=== PATIENT | male | born 1980 | race Caucasian/White ===

== ENCOUNTER 2025-11-21 16:36 | Emergency (ER) | payer BC, SELFPAY ==
--- OUTSIDE RECORDS SUMMARY | 2025-11-21 16:39 | XMS_ITS | Clinical Summary ---
Author Organization [facility] Address [address] [place] [address] Phone Care Team Providers Care [employer] Name Role Phone Jose Kilgore MD Primary Care Provider [phone] Allergies No known active allergies Medications finasteride (PROSCAR) 5 MG Tablet Take 5 mg by mouth daily. Active valACYclovir (VALTREX) 500 MG Tablet Take 500 mg by mouth daily. Active omeprazole (PRILOSEC) 20 MG CAPSULE DELAYED RELEASE Take 20 mg by mouth daily. Active promethazine-de xtromethorphan (PROMETHAZINE-D M) 6.25-15 MG/5ML SyrupIndication s:Acute cough Take 5 mL by mouth every 4 hours as needed for Cough. 240 mL 2 Active methylPREDNISol one (Medrol) 4 MG Tablet Therapy PackIndications :Bronchitis Use as per instructions on package. 21 Tablet 2 Active Additional Information Patient not taking.Reported on 10/16/2023 Active Problems No known active problems Immunizations Immunization Administration Dates Next Due Influenza Vaccine greater than 3 yrs 09/09/2019 Social History Tobacco Use Types Packs/Day Years Used Date Smoking Tobacco: Never Smokeless Tobacco: Never Tobacco Cessation:Counseling Given: Not Answered Alcohol Use Standard Drinks/Week Comments Yes 0 (1 standard drink = 0.6 oz pur e alcohol) occasional Sexually Active Control Partners Comments Not Currently Sex and Gender Information Value Date Recorded Sex Assigned at Not on file Legal Sex Male 7:27 PM CDT Gender Identity Not on file Sexual Orientation Not on file Last Filed Vital Signs Vital Sign Reading Time Taken Comments Blood Pressure 122/84 10/16/2023 11:20 AM [employer] Pulse 96 10/16/2023 11:20 AM [employer] Temperature 36.5 C (97.7 F) 10/16/2023 11:20 AM [employer] Respiratory Rate 18 10/16/2023 11:20 AM [employer] Oxygen Saturation 98% 10/16/2023 11:20 AM [employer] Inhaled Oxygen Concentration - - Weight 102.1 kg (225 lb) 03/06/2021 8:07 AM CDT Height 195.6 cm (6' 5) 01/20/2019 2:34 PM [employer] Body Mass Index 26.68 01/20/2019 2:34 PM [employer] Plan of Treatment Health Maintenance Due Date Last Done Comments Hepatitis C Virus (HCV) Screening 1980 Hepatitis B Immunization (1 of 3 - 19+ 3-dose series) 1997 Cologuard 2023 Colonoscopy 2023 Colorectal Cancer Screening 2023 Immunochemical Fecal Occult Blood 2023 Influenza Immunization (#1) 2025 11/0 07/2023, 09/18/2022, 12/01/2021, Additional history exists SARS-COV-2 Immunization ( - 2024- season) 2025 01/07/2021, 12/10/2020 Respiratory Syncytial Virus (RSV) Immunization (Adult) (1 - 1-dose 75+ series) 2053 DTaP/Tdap/Td Immunization Discontinued 03/14/2023, TdaP Immunization Completed 03/14/2023, 08/15/2011 Human Papillomavirus (HPV) Immunization (No Doses Required) Completed Meningococcal Immunization (ACWY) Aged Out No longer eligible based on patient's age to complete this topic Pneumococcal Immunization Combined Aged Out No longer eligible based on patient's age to complete this topic Rotavirus Immunization Aged Out No lo nger eligible based on patient's age to complete this topic Insurance [facility] Care Teams [employer] Relationship Specialty Start Date End Date Jose Kilgore MD [employer] [id number] PCP - General Internal Medicine 10/30/15
--- OUTSIDE RECORDS SUMMARY | 2025-11-21 16:40 | XMS_ITS | Clinical Summary ---
Author Organization [facility] Address [address] [place] [address] Care Team Providers Care Blood Bank Laboratory Technologist Name Role Phone Jose Kilgore MD Primary Care Provider [phone] Allergies No known active allergies Medications omeprazole OTC (PriLOSEC OTC) 20 mg EC tablet Take 1 tablet (20 mg total) by mouth daily Active finasteride (PROSCAR) 5 mg tablet TAKE 1 TABLET DAILY 90 tablet 1 5 Active valACYclovir (VALTREX) 1 gram tabletIndications :Herpes simplex infection of penis TAKE 1 TABLET(1000 MG) BY MOUTH DAILY 90 tablet 1 5 Active solriamfetoL (Sunosi) 150 mg tablet Take 1 tablet (150 mg total) by mouth daily 30 tablet 5 5 Active linaCLOtide (LINZESS) 72 mcg capsuleIndication s:Irritable bowel syndrome with both constipation and diarrhea Take 1 capsule (72mcg total) by mouth once daily 90 capsule 2 5 Active linaCLOtide (LINZESS) 72 mcg capsule Take 1 capsule (72mcg total) by mouth once daily 90 capsule 2 2 11/15/20 25 Discontinu ed(Reorder ) modafiniL (PROVIGIL) 200 mg tablet Take 1 tablet (200 mg total) by mouth 2 (two) times a day 60 tablet 5 4 11/15/20 25 Discontinu ed(Patient Reported) solriamfetoL (Sunosi) 150 mg tablet TAKE 1 TABLET(150 MG) BY MOUTH DAILY 30 tablet 5 5 11/04/20 25 Discontinu ed(Reorder ) Active Problems Problem Noted Date Diagnosed Date Preventative health care 11/12/2025 Assessment & Plan (11/12/2025 1:57 PM SIDE BOSS): Presents today for annual wellness exam Medication reconciliation completed and med list updated appropriately Memory loss 11/16/2021 Laryngopharyngeal reflux (LPR) 10/20/2019 Assessment & Plan (10/20/2019 3:44 PM SIDE BOSS): Continue omeprazole in the morning 20 mg Start Pepcid 40 mg at bedtime every day 64 ounces of caffeine free and soda free fluid daily Avoid acidic foods and fluids Irritable bowel syndrome wit h both constipation and diarrhea 03/16/2019 Overview (03/16/2019): Added automatically from request for surgery [id number] Assessment & Plan (11/15/2025 11:06 AM SIDE BOSS): Chronic, stable Family hx of IBS Meds: lizness, continue Continue OTC Metamucil Goal: medication compliance - stable Assessment & Plan (12/28/2019 3:49 PM SIDE BOSS): The elavil 25 has helped but still has what I think is L chest wll or chostochondrial pain related to motion and exewrtion. Miralax daily maintainds daily bm. Now has difficulty maintaining erection. Will increase the elavil to 50 and add cialis prn. Return 4 weeks Assessment & Plan (11/27/2019 2:19 PM SIDE BOSS): Has been following dit and daily miralax but in wpite of daily bms has LUQ cramping pain. Also notes pop at xiphoid or insertion into sternum. He desiures trial of meds. PE positive only for very prominent xiphoid. 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 will do valtrex 500 mg po qday , they are having marital issues he did have sex with somebody else but does not has any symptoms,he has not told his yet does not plan to have sex with her and plans to tell him , we did discuss it may be a reportable illness will check with the health dept , we stressed its imperative to tell and inform his about it however cant really tell who he got it from and when the tests really caqnt differentiate one from the other OSMANY (obstructive sleep apnea) 06/14/2017 Assessment & Plan (04/13/2024 5:41 PM CDT): On cpap F/u dr nair ( referral done ) Compliance discussed ) Hypersomnia 06/14/2017 Assessment & Plan (11/15/2025 11:06 AM SIDE BOSS): Chronic, stable Follows w/ Dr. Nair Meds: solriamfetol, continue Goal: per sleep medicine Mixed hyperlipidemia 04/10/2014 Overview (02/27/2017): Hyperlipidemia LDL goal < 130 Assessment & Plan (11/15/2025 11:05 AM SIDE BOSS): Chronic, unstable Labs reviewed: lipid panel 10/2025 Current therapy (ies)/home meds: none States he has been using Metamucil Today's Plan: Meds: none today Labs: repeat lipid panel in 6 months Recs: heart healthy diet, regular exercise, managing stress Goal: LDL less than 100 Assessment & Plan (04/13/2024 5:40 PM CDT): Pooled cohort score is 2.7 percent LDL is under 190 now Continue dietary modifications Resolved Problems Problem Noted Date Diagnosed Date Resolved Date Pre-employment health screening examination 10/29/2024 11/12/2025 Assessment & Plan (05/10/2025 11:01 AM CDT): Immunizations were reviewed today Eye exam and dental uptodate Fall prevention and precautions were reviewed Continue current medication regimen Monitoring and labs reviewed No cogntive decline . Skin assessement with no suspicious lesions. PATIENT WILL CONTINUE TO FOLLOW UP EVERY 4-6 MONTHS OR CLINICALLY INDICATED. MEDICATION ADHERENCE , PREVENTATIVE SCREENINGS. AND C HRONIC CONDITION MANAGEMENT WILL BE MONITORED REGULARLY . PATIENT ADVISED TO CONTACT OFFICE WITH ANY NEW OR WORSENING SYMPTOMS. Assessment & Plan (10/29/2024 5:48 AM SIDE BOSS): Immunizations were reviewed Eye exam and dental uptodate Osmany on cpap machine Intermiediate risk for CAD DUE TO OSMANY/ AGE ABOVE 45/ ELEVATED LDL ABOVE 190 DISCUSSED STATINS / DISCUSSED CORONARY CALCIUM SCORING IBS WITH CONSTIPATION ON LINZESS WITRH A NEG COLONSCOPY ED ORGANIC IN NATURE ON SIDENAFIL PRN AT A DOSAGE OF 50 MG PRN Viral URI with cough 10/30/2023 025 Assessment & Plan (10/30/2023 11:58 AM SIDE BOSS): Symptoms came back yesterday after COVID + diagnosis 2 weeks ago. Tested negative for COVID and FLU in office today. No acute findings on exam, lungs clear. Likely viral, Use OTC meds as needed for cough. Discussed antihistamine use (zyrtec/cherri) to help dry up nasal drip. Mucinex to thin mucous for chest congestion. Tylenol/Ibuprofen as needed for pain. Increase fluids (water) Cool mist humidifier at night Use sinus rinses to help flush bacteria and help with congestion. Encouraged honey, marshmallows, gelatin, or chloraseptic to help coat throat. Call with any worsening or persistent symptoms. Folliculitis 08/30/2022 11/12/2025 Assessment & Plan (08/30/2022 8:56 AM CDT): Presents with ingrown hair to R anterior paulino for 3-4 weeks. He has tried to pop it multiple times and only gets blood out of it, no purulent drainage. Localized papule to R anterior paulino with minimal surrounding redness, upon palpation clear drainage is noted from around central scab. No warmth or fluctuance. Likely localized folliculitis, Rxd clindagel as directed. Keep clean and dry, cleanse at least daily with mild soap and water. Call with any changes or concerns or if symptoms not improved within 2 weeks. Keep follows as scheduled. Hematoma (nontraumatic) of m daisy genital organs 02/28/2021 11/12/2025 Epigastric pain 10/26/2019 11/12/2025 Assessment & Plan (01/25/2020 3:45 PM SIDE BOSS): Elavil no help Still has epi butning related to constipation and worsened by torso motion. Still LLQ pain with constipation and stress. Thus far CT,colonoscopy and blood work and PE normal. Broached possibility of anxiwty and stress and he is receptive. Will try Linzess and also EGD and then recap here. Assessment & Plan (10/26/2019 2:13 PM SIDE BOSS): I reviewed notes,labs,images and procedures. 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 Colonoscopy normal. CT maybe 2 tiny gallstones and probably NOT fatty liver. LFTs normal the last several years. PE neg. I think ibs post GE and will try hi fiber diet and recap in 4 weeks. May consider pharma is diet unsuccessful. Encounters Date Type Department Care Team Description 11/15/2025 10:30 AM SIDE BOSS Office Visit [facility] [address] [place] [phone] Dsetin Avila NP Preventative health care (Primary Dx); Hypersomnia; Irritable bowel syndrome with both constipation and diarrhea; Mixed hyperlipidemia 11/10/2025 10:10 AM SIDE BOSS Lab [facility] [address] [place] [address] Routine physical examination 11/04/2025 3:15 PM SIDE BOSS Office Visit [facility] [address] [facility] [address] [place] [phone] Elizabeth Nair MD OSMANY (obstructive sleep apnea) (Primary Dx); Hypersomnia 11/03/2025 [facility] [address] [place] [phone] Jose Kilgore MD from Last 3 Months Immunizations Immunization Administration Dates Next Due Influenza, Quadrivalent, Spl it, Preservative Free, Intramuscular 10/03/2023,09/18/2022,12/01/2021 Influenza, Split 08/15/2011 Influenza, Trivalent, IM (MDV) 09/09/2019 Influenza, Trivalent, Preser vative Free, Intramuscular 08/27/2025,09/23/2024 Moderna SARS-CoV-2 Monovalen t Vaccination (12+ YRS) 01/07/2021,12/10/2020 Tdap 03/14/2023,08/15/2011 Surgical History Surgery Date Site/Laterality Comments OTHER SURGICAL HISTORY right knee ACL, meniscus removed, then screw removed ([id number]) COLONOSCOPY 04/06/2019 1st Medical History Medical History Date Comments Chronic constipation since Oct.2 018 w/bloating Family History Medical History Relation Name Comments Leukemia Cousin Cancer -leukemi a; Other Father Alive and well; Irritable bowel syndrome Mother Irr itable bowel disease; Other Mother kidney stone; Relation Name Status Comments Cousin Father Alive Mother Social History Tobacco Use Types Packs/Day Years Used Date Smoking Tobacco: Never Smokeless Tobacco: Never Tobacco Cessation:Counseling Given: Not Answered Alcohol Use Standard Drinks/Week Comments Yes 1 (1 standard drink = 0.6 oz pur e alcohol) occasional AUDIT-C Answer Date Recorded Q1: How often do you have a drink containing alc ohol? Never 02/28/2021 Average Number of Drinks Not on file 021 Frequency of Binge Drinking Not on file 0404/2021 PHQ-2 Answer Date Recorded PHQ-2 Total Score (If total score is 3 or more points, staff should administer the PHQ-9) 0 11/15/2025 PHQ-9 Answer Date Recorded PHQ-9 Total Score 0 11/15/2025 Sex and Gender Information Value Date Recorded Sex Assigned at Not on file Legal Sex Male 10:32 AM SIDE BOSS Gender Identity Not on file Sexual Orientation Not on file Last Filed Vital Signs Vital Sign Reading Time Taken Comments Blood Pressure 126/64 11/15/2025 10:26 AM SIDE BOSS Pulse 87 11/15/2025 10:26 AM SIDE BOSS Temperature 36.2 C (97.1 F) 11/15/2025 10:26 AM SIDE BOSS Respiratory Rate 16 11/15/2025 10:2 6 AM SIDE BOSS Oxygen Saturation 98% 11/15/2025 10: 26 AM SIDE BOSS Inhaled Oxygen Concentration - - Weight 108.3 kg (238 lb 12.8 oz) 2024 10:26 AM SIDE BOSS Height 195.6 cm (6' 5) 11/15/2025 10:2 6 AM SIDE BOSS Body Mass Index 28.32 11/15/2025 10:26 AM SIDE BOSS Plan of Treatment Health Maintenance Due Date Last Done Comments Hepatitis C Screening 1978 Hepatitis B Screening 1996 Covid-19 Vaccine ( season) 2025 01/07/2021, 12/10/2020 Depression Screening 11/15/2026 11/15/2025, 11/15/2025, 10/28/2024, Additional history exists Regular Well Visit/Exam 18-64 11/15/2026 11/15/2025, 10/28/2024, 03/14/2023, Additional history exists Colon Cancer Screening-Colonoscopy 04/06/2029 04/06/2019 DTaP/Tdap/Td Vaccine (3 - Td or Tdap) 03/14/2033 03/14/2023, 08/15/2011 Influenza Vaccine Completed 08/27/2025, , 10/03/2023, Additional history exists Pneumococcal vaccine <65 Aged Out No longer eligible based on patient's age to complete this topic Procedures Procedure Name Priority Date/Time Associated Diagnosis Comments EGFR Routine 11/10/2025 10:18 AM SIDE BOSS Routine physical examination DIFFERENTIAL AUTO Routine 11/10/2025 10: 18 AM SIDE BOSS Routine physical examination PSA SCREEN Routine 11/10/2025 10:18 AM SIDE BOSS Routine physical examination LIPID PANEL Routine 11/10/2025 10:18 AM SIDE BOSS Routine physical examination CBC WITH AUTO DIFFERENTIAL Routine 11/10/2025 10:18 AM SIDE BOSS Routine physical examination COMPREHENSIVE METABOLIC PANEL Routine 11/10/2025 10:18 AM SIDE BOSS Routine physical examination COLONOSCOPY 04/06/2019 10:59 AM CDT from Last 3 Months or Most Recently Relevant to Health Maintenance Results * eGFR (11/10/2025 10:18 AM SIDE BOSS) eGFR 90 >=60 mL/min/1. 73 m2 Comment: Interpretive Data Reference Interval Normal >/= 90 mL/min/1.73m2 Mildly decreased* 60 - 89 mL/min/1.73m2 Mildly to moderately decreased 45 - 59 mL/min/1.73m2 Moderately to severely decreased 30 - 44 mL/min/1.73m2 Severely decreased 15 - 29 mL/min/1.73m2 Kidney Failure < 15 mL/min/1.73m2 *Relative to young adult level Estimated glomerular filtration rate is determined by the 2020 CKD-EPI equation recommended by the National Kidney Foundation (A Unifying Approach to GFR Estimation: Recommendations of the NKF-ASK Task Force on Reassessing the Inclusion of Race in Diagnosing Kidney Disease, JASN 2020). The CKD-EPI equation should not be used for patients with unstable renal function and has not been validated in children and those over 70. Current interpretive data was last reviewed 2021. Testing performed by: [facility], [address] [place] [address]., [address] Blood 11/10/2025 10:1 8 AM SIDE BOSS 11/10/2025 10:31 AM SIDE BOSS Jose Kilgore MD LAB BLOOD ORDERABLES Final Result RADHA HENAO [address] [facility] [place] [address] * Differential, auto (11/10/2025 10:18 AM SIDE BOSS) Neutrophil abs 3.78 1.50 - 6.50 K/cumm Comment:Testing performed by : [address] [address] Imm gran abs 0.01 0.00 - 0.10 K/cumm RADHA HENAO Comment:Testing performed by : [address] [address] Lymphocyte abs 1.74 0.80 - 3.30 K/cumm RADHA Comment:Testing performed by : [address], [place]., [address] Monocyte abs 0.47 0.20 - 0.80 K/cumm CERRUTH ANN Comment:Testing performed by : [address], [place]., [address] Eosinophil abs 0.11 0.00 - 0.50 K/cumm [facility] Comment:Testing performed by : [address], [place]., [address] Basophil abs 0.04 0.00 - 0.10 K/cumm [facility] Comment:Testing performed by : [address] [address] Neutrophil pct 61.4 % [facility] Comment: Interpretive Data Percent cell count reference ranges are not reported, since discordance with absolute values may lead to misinterpretation of CBC data. Current Interpretive Data was last revised on 2018. Testing performed by: [address] [address] Imm gran pct 0.2 % [facility] Comment: Interpretive Data Percent cell count reference ranges are not reported, since discordance with absolute values may lead to misinterpretation of CBC data. Current Interpretive Data was last revised on 2018. Testing performed by: [address] [address] Lymphocyte pct 28.3 % [facility] Comment: Interpretive Data Percent cell count reference ranges are not reported, since discordance with absolute values may lead to misinterpretation of CBC data. Current Interpretive Data was last revised on 2018. Testing performed by: [address] [address] Monocyte pct 7.6 % [facility] ANN Comment: Interpretive Data Percent cell count reference ranges are not reported, since discordance with absolute values may lead to misinterpretation of CBC data. Current Interpretive Data was last revised on 2018. Testing performed by: [address] [address] Eosinophil pct 1.8 % [facility]ER [facility] Comment: Interpretive Data Percent cell count reference ranges are not reported, since discordance with absolute values may lead to misinterpretation of CBC data. Current Interpretive Data was last revised on 2018. Testing performed by: [address] [address] Basophil pct 0.7 % [facility] Comment: Interpretive Data Percent cell count reference ranges are not reported, since discordance with absolute values may lead to misinterpretation of CBC data. Current Interpretive Data was last revised on 2018. Testing performed by: [address] [address] Blood 11/10/2025 10:1 8 AM SIDE BOSS 11/10/2025 10:33 AM SIDE BOSS Jose Kilgore MD LAB BLOOD ORDERABLES Final Result Performing Organization Address [facility] de Phone Number [address] [place] [address] * PSA screen (11/10/2025 10:18 AM SIDE BOSS) PSA-Total 0.33 ng/mL Comment: Interpretive Data AGE SEX REFERENCE INTERVAL 0 minutes-150 years Female None 0 minutes-49 years Male None 50-59 years Male 0-3.90 60-69 years Male 0-5.40 70-79 years Male 0-6.20 80-150 years Male 0-6.20 The Payton PSA Total assay procedure was used. Results from different manufacturers or methods may not be comparable. Serial testing should be performed using the same method. Current interpretive data last revised 22. Testing performed by: [address] [address] Blood 11/10/2025 10:1 8 AM SIDE BOSS 11/10/2025 10:31 AM SIDE BOSS Jose Kilgore MD LAB BLOOD ORDERABLES Final Result Performing Organization Address [facility] de Phone Number [address] [place] [address] * CBC with auto differential (11/10/2025 10:18 AM SIDE BOSS) [facility] WBC 6.15 3.80 - 9.90 K/cumm Comment:Testing performed by : [address] [address] Hgb 16.5 13.0 - 17.5 g/dL RADHA Comment:Testing performed by : [address], [address] Hct 49.1 38.9 - 50.3 % RADHA Comment:Testing performed by : [address], [address] Plt 191 150 - 400 K/cumm RADHA Comment:Testing performed by : [address] [address] MPV 10.9 9.1 - 12.3 fL RADHA Comment:Testing performed by : [address], [address] RBC 5.55 4.30 - 5.80 M/cumm RADHA Comment:Testing performed by : [address], [address] MCV 88.5 81.3 - 96.4 fL RADHA Comment:Testing performed by : [address] [address] MCH 29.7 27.1 - 33.3 pg RADHA Comment:Testing performed by : [address], [address] MCHC 33.6 32.3 - 35.7 g/dL RADHA Comment:Testing performed by : [address] [address] RDW CV 12.0 11.1 - 14.9 % RADHA Comment:Testing performed by : [address] [address] RDW SD 38.7 35.7 - 48.1 fL RADHA Comment:Testing performed by : [address], [address] NRBC abs 0.00 0.00 - 0.01 K/cumm RADHA HENAO Comment:Testing performed by : [facility], [address] [place] [address]., [address] Blood 11/10/2025 10:1 8 AM SIDE BOSS 11/10/2025 10:33 AM SIDE BOSS us Jose Kilgore MD LAB BLOOD ORDERABLES Final Result RADHA [address] [facility] [place] [address] * (ABNORMAL) Lipid panel (11/10/2025 10:18 AM SIDE BOSS) Cholesterol 269(H) 30 - 199 mg/dL Comment: Interpretive Data Ages < or = 19 years Acceptable: <170 mg/dL Borderline high: 170-199 mg/dL High: >or= 200 mg/dL Ages > or = 20 years Desirable: <200 mg/dL Borderline high: 200-239 mg/dL High: >or= 240 mg/dL Literature References: 1. Expert Panel on Integrated Guidelines for Cardiovascular Health and Risk Reduction in Children and Adolescents. Pediatrics 2011;128:S213 2. NCEP Expert Panel. Circulation 2004;110:227 Current Interpretive Data was last revised on 2018. Testing performed by: [facility], [address] [place] [address]., [address] Triglycerides 154(H) <=149 mg/dL RADHA HENAO Comment: Interpretive Data Ages < or = 9 years Acceptable: <75 mg/dL Borderline high: 75-99 mg/dL High: >or= 100 mg/dL Ages 10 to 20 years Acceptable: <90 mg/dL Borderline high: 90-129 mg/dL High: >or= 130 mg/dL Ages > or = 20 years Desirable: <150 mg/dL Borderline high: 150-199 mg/dL High: 200-499 mg/dL Very high: >or= 499 mg/dL Literature References: 1. Expert Panel on Integrated Guidelines for Cardiovascular Health and Risk Reduction in Children and Adolescents. Pediatrics 2011;128:S213 2. NCEP Expert Panel. Circulation 2004;110:227 Current Interpretive Data was last revised on 2018. Testing performed by: [facility], [address] [place] [address]., [address] HDL 55 >=40 mg/dL RADHA Comment: Interpretive Data Ages < or = 19 years Acceptable: >45 mg/dL Borderline low: 40-45 mg/dL Low: <40 mg/dL Ages > or = 20 years Desirable: >or= 60 mg/dL Low: <40 mg/dL Literature References: 1. Expert Panel on Integrated Guidelines for Cardiovascular Health and Risk Reduction in Children and Adolescents. Pediatrics 2011;128:S213 2. NCEP Expert Panel. Circulation 2004;110:227 Current Interpretive Data was last revised on 2018. Testing performed by: [address] [address] LDL, calculated 186(H) <=129 mg/dL RADHA Comment: Interpretive Data Ages < or = 19 years Acceptable: <110 mg/dL Borderline high: 110-129 mg/dL High: >or= 130 mg/dL Ages > or = 20 years Optimal: <100 mg/dL Near optimal: 100-129 mg/dL Borderline high: 130-159 mg/dL High: >160 mg/dL Calculated using the Kayden LDL-C estimating equation. This equation was implemented on 2024. Prior to this date LDL-C was estimated using the Friedewald equation. Literature References: 1. Expert Panel on Integrated Guidelines for Cardiovascular Health and Risk Reduction in Children and Adolescents. Pediatrics 2011;128:S213 2. NCEP Expert Panel. Circulation 2004;110:227 3. Kayden Mills et al. MITSY Cardiol. 2020 March 25;5(5):540-548. doi: 10.1001/jamacardio.2020.0013 Current Interpretive Data was last revised on 2024. Testing performed by: [facility], [address] [place] [address]., [address] Non-HDL Cholesterol 214 mg/dL RADHA Comment: Interpretive Data Ages < or = 19 years Acceptable: <120 mg/dL Borderline high: 120-144 mg/dL High: >145 mg/dL Ages > or = 20 years When triglycerides are >200 mg/dL, Non-HDL cholesterol is a secondary target of therapy with treatment goals that are 30 mg/dL greater than the LDL cholesterol target. Literature References: 1. Expert Panel on Integrated Guidelines for Cardiovascular Health and Risk Reduction in Children and Adolescents. Pediatrics 2011;128:S213 2. NCEP Expert Panel. Circulation 2004;110:227 Current Interpretive Data was last revised on 2018. Testing performed by: [address] [address] Chol/HDL ratio 5 RADHA Comment:Testing performed by : [address] [address] Blood 11/10/2025 10:1 8 AM SIDE BOSS 11/10/2025 10:31 AM SIDE BOSS us Jose Kilgore MD LAB BLOOD ORDERABLES Final Result RAD[facility] [place] [address] * (ABNORMAL) Comprehensive metabolic panel (11/10/2025 10:18 AM SIDE BOSS) Sodium 141 135 - 145 mmol/L Comment:Testing performed by : [address] [address] Potassium, pl 4.9 3.3 - 4.9 mmol/L RADHA Comment: Hemolyzed; Potassium value may be falsely elevated by as much as 1.0 mmol/L. Suggest redraw and reanalysis. Testing performed by: [address] [address] Chloride 103 97 - 110 mmol/L RADHA Comment:Testing performed by : [address] [address] CO2 26 22 - 32 mmol/L RADHA Comment:Testing performed by : [address] [address] Anion gap 12 2 - 15 mmol/L RADHA Comment:Testing performed by : [address] [address] BUN 19 6 - 25 mg/dL RADHA Comment:Testing performed by : [address] [address] Creatinine 1.03 0.80 - 1.30 mg/dL [facility] Comment:Testing performed by : [address] [address] Glucose 104 70 - 199 mg/dL [facility] Comment: Interpretive Data Fasting glucose >/= 126 mg/dl is diagnostic for diabetes. Fasting is defined as no caloric intake for at least 8 hours. Fasting glucose between 100 mg/dl to 125 mg/dl is diagnostic of prediabetes. In a patient with classic symptoms of hyperglycemia or hyperglycemic crisis, a random glucose >/= 200 mg/dl is diagnostic for diabetes. In the absence of unequivocal hyperglycemia, results should be confirmed by repeat testing. The classification and Diagnosis of Diabetes Diabetes Care 202; 46: S19-S40. Current interpretive data was last revised 2022. Testing performed by: [address] [address] Calcium 10.9(H) 8.5 - 10.3 mg/dL [facility] Comment:Testing performed by : [address] [address] Bilirubin, total 0.7 0.1 - 1.2 mg/dL [facility] Comment:Testing performed by : [address] [address] Protein, pl 7.8 6.5 - 8.5 g/dL [facility] Comment:Testing performed by : [address] [address] Albumin 4.7 3.5 - 5.0 g/dL [facility] Comment:Testing performed by : [address] [address] Alk phos 93 40 - 130 Units/L [facility] Comment:Testing performed by : [address] [address] ALT 47 7 - 55 Units/L [facility] Comment:Testing performed by : [address] [address] AST 33 10 - 50 Units/L [facility] Comment: Hemolyzed; result may be falsely elevated Testing performed by: [address] [address] Blood 11/10/2025 10:1 8 AM SIDE BOSS 11/10/2025 10:31 AM SIDE BOSS Jose Kilgore MD LAB BLOOD ORDERABLES Final Result RADHA [address] [facility] Department of Laboratories [place], [place] [id number] * COLONOSCOPY (04/06/2019 10:59 AM CDT) Anatomical Region Laterality Modality Other Narrative Procedure Note Terry Wbeber MD - 04/06/2019 10:59 AM CDT [facility] Patient Name: [facility] Procedure Date: 04/06/2019 10:59 AM Date of : 1980 Admit Type: Outpatient Age: 39 Gender: Male Attending MD: Terry Webber M.D. Room: [facility] END[facility]COPY ROOM 2 Note Status: Finalized Procedure: Colonoscopy Indications: This is the patient's first colonoscopy, Change in bowel habits Referring MD: Jose Kilgore M.D. Providers: Terry Webber M.D. Impression: - The entire examined colon is normal. - The [Location] is normal. - No specimens collected. Recommendation: - Discharge patient to home. - Resume previous diet. - Continue present medications. - Repeat colonoscopy in 10 years for screeningpurposes. - Return to primary care physician as previously scheduled. Medicines: Propofol per Anesthesia Complications: No immediate complications. Estimated Blood Loss: Estimated blood loss: none. Procedure: The benefits, risks and alternatives of theprocedure and sedation were discussed and informed consent was obtained. All questions were answered. Please referto the signed informed consent document in the medical record. The scope was passed under direct vision.The Colonoscope [id number] was introducedthrough the anus and advanced to the the cecum, identifiedby appendiceal orifice and ileocecal valve. The colonoscopy was performed without difficulty. The patient tolerated the procedure well. The quality of the bowel preparation was good. Findings: The perianal and digital rectal examinations were normal. The colon (entire examined portion) appeared normal. The [Site] appeared normal. Electronically signed by Terry Webber M.D. Terry Webber M.D. 04/06/2019 11:26:12 AM Number of Addenda: 0 Note Initiated On: 04/06/2019 10:59 AM Procedure Code(s): --- Professional --- 37008, Colonoscopy, flexible; diagnostic, including collection of specimen(s) by brushing or washing, when performed (separateprocedure) Diagnosis Code(s): --- Professional --- R19.4, Change in bowel habit CPT copyright 2017 [employer]. All rights reserved. The codes documented in this report are preliminary and upon engineering programmer reviewmay be revised to meet current compliance requirements. Recognized by the [employer] for promoting quality in endoscopy Terry Webber MD ENDOSCOPY PROCEDURES Final Re sult from Last 3 Months or Most Recently Relevant to Health Maintenance Insurance [facility] [place] [address] [place] [address] [facility] Advance Directives For more information, please contact: [phone] * Full Code (Latest Code Status on File) Date Activated Date Inactivated Comments 04/06/2019 9:29 AM 04/06/2019 4:01 PM * Full Code Date Activated Date Inactivated Comments 04/06/2019 9:28 AM 04/06/2019 9:29 AM Care Teams Blood Bank Laboratory Technologist Relationship Specialty Start Date End Date Jose Kilgore MD [address] [place] [address] PCP - General 02/22/17
[2025-11-21 16:49] VITALS: BP 119/94; PULSE 100; RESP 18; TEMP 36; O2SAT 99
[2025-11-21 17:03] LABS: EDCOVIDSCREEN Positive (Negative); EDINFLUASCREEN Negative (Negative); EDINFLUBSCREEN Negative (Negative)
--- NOTE | 2025-11-21 17:09 | ED.URI ---
HPI - URI/Sore Throat General Chief Complaint: Upper Respiratory Infection Stated Complaint: Upper Respiratory Infection History of Present Illness HPI Narrative: CHIEF COMPLAINT: Persistent COVID symptoms PATIENT SUMMARY: The patient presented with persistent COVID symptoms. HISTORY OF PRESENT ILLNESS: The patient reported feeling unwell since Saturday, initially experiencing drainage and a mild sore throat. By Saturday and , the patient felt run-down without strong symptoms. On Saturday, the patient's nose was running excessively, and the patient felt feverish with a low-grade fever. Despite feeling slightly better on Saturday and Saturday, the patient remained unable to completely recover. The patient was using Claritin, Mucinex, saline nasal spray, and an overnight nasal spray without significant relief. The patient also experienced chest congestion and a dry cough. The patient had been sweating and experienced a temperature spike after using albuterol, which was taken along with Sunosi, a medication for sleep apnea. The patient reported not having shortness of breath. The symptoms improved slightly over the weekend but persisted. REVIEW OF SYSTEMS: Constitutional: Positive for feeling run-down and feverish. Negative for significant improvement despite medication. Respiratory: Positive for chest congestion and a dry cough. Negative for shortness of breath. PAST MEDICAL HISTORY: Sleep apnea (treated with Sunosi) PAST SURGICAL HISTORY: Not available MEDICATIONS: Claritin 24-hour, Mucinex 12-hour, Saline nasal spray, Sunosi, Albuterol (previously prescribed) ALLERGIES: Not available FAMILY HISTORY: Not available SOCIAL HISTORY: - Contact with family limited due to COVID-19 - Concerned about infecting daughter who is home from college VITALS AND PHYSICAL EXAM: Not available Related Data Home Medications ?Medication ?Instructions ?Recorded ?Confirmed ?Last Taken ?Type solriamfetol 150 mg tablet (Sunosi) mg 11/21/25 Unknown History valacyclovir 1 gram tablet mg 11/21/25 Unknown History Allergies Allergy/AdvReac Type Severity Reaction Status Date / Time No Known Allergies Allergy Verified 11/21/25 16:48 Review of Systems Review of Systems: All systems reviewed & are unremarkable except as noted in HPI and below Eyes: Eyes: Reports as per HPI ENT: Reports as per HPI Cardiovascular: Cardiovascular: Reports as per HPI Respiratory: Respiratory: Reports as per HPI Genitourinary: Genitourinary: Reports as per HPI Musculoskeletal: Musculoskeletal: Reports as per HPI Integumentary/Breasts: Skin/Breast: Reports as per HPI Neurologic: Reports as per HPI Psychiatric: Psychiatric: Reports as per HPI Endocrine: Endocrine: Reports as per HPI Hematologic/Lymphatic: Hematologic/Lymphatic: Reports as per HPI Allergic/Immunologic: Allergic/Immunologic: Reports as per HPI Exam Const: General: cooperative, healthy appearing, comfortable, no acute distress and well developed Orientation/consciousness: patient oriented x3 HENMT: Head: normal to inspection Ears: TM's normal bilaterally Throat: posterior oropharynx normal Eyes: General: appearance normal, both eyes and all related structures Resp: Effort & Inspection: normal respiratory effort and able to speak in complete sentences Auscultation: clear to auscultation bilaterally Cardio: Rate: regular rate Rhythm: regular rhythm Heart sounds: S1 normal heart sound present and S2 normal heart sound present Skin: General skin exam: normal color Neuro: General: patient oriented x3 Cognition (Neuro): normal cognition Speech: normal speech Psych: Mental Status: mental status grossly normal Course Course Level of Care: Express Care Visit Vital Signs Vital signs: Vital Signs Temperature 96.8 F L 11/21/25 16:49 Pulse Rate 100 11/21/25 16:49 Respiratory Rate 18 11/21/25 16:49 Blood Pressure 119/94 H 11/21/25 16:49 Pulse Oximetry 99 11/21/25 16:49 Oxygen Delivery Room Air 11/21/25 16:49 Temperature 96.8 F L 11/21/25 16:49 Pulse Rate 100 11/21/25 16:49 Respiratory Rate 18 11/21/25 16:49 Blood Pressure 119/94 H 11/21/25 16:49 Pulse Oximetry 99 11/21/25 16:49 Oxygen Delivery Room Air 11/21/25 16:49 [facility] MDM Narrative Medical decision making narrative: DIAGNOSTIC STUDIES: Positive COVID-19 test, negative for flu ASSESSMENT: The differential diagnosis is listed in order of most to least likely. 1. COVID-19: The patient's symptoms are consistent with COVID-19, including runny nose, fever, and chest congestion. The patient tested positive for COVID-19, making this diagnosis most likely. 2. Viral Upper Respiratory Infection: The patient's symptoms, such as nasal drainage and sore throat, are common in viral infections. However, the positive COVID-19 test makes this less likely. 3. Allergic Rhinitis: The patient's use of antihistamines and nasal sprays suggests a history of allergy management, but the acute nature and positive COVID-19 test suggest this is less likely. PLAN: Treatment: - Continued use of Claritin, Flonase, and saline nasal spray - Suggested use of guaifenesin DM for chest congestion Tests: - No additional tests ordered at this time Patient Education: - Advised on symptomatic treatment and encouraged to stay hydrated - Informed about the importance of staying fever-free for 24 hours before resuming activities Follow-Up: - Advised to return if symptoms worsen or do not improve within the expected time frame Disposition: - Patient to self-monitor and manage symptoms at home MEDICAL DECISION MAKING: The history of present illness indicated ongoing COVID-19 symptoms with some improvement. Testing confirmed a positive COVID-19 result, directing the focus towards symptomatic management. Differential diagnosis prioritized COVID-19 over other potential causes such as a general viral infection or allergic rhinitis. The plan of care involved continued symptomatic treatment, patient education on managing symptoms, and guidance for when to seek further medical attention. Differential Diagnosis Differential Diagnosis: differentials include but not limited to COVID, influenza, URI, sinusitis. Lab Data MDM Lab Attestation statement: I personally reviewed the patient's lab results. Labs: Lab Results 11/21/25 Range/Units 17:01 POC Influenza A Ag Negative (Negative) POC Influenza B Ag Negative (Negative) POC SARS CoV-2 Ag Positive (Negative) Discharge Plan Discharge Clinical Impression: COVID-19 Patient Disposition: Home Condition: Stable Instructions: Antibiotic Form, COVID-19 (Coronavirus Disease 2019) (ED), How to Recover from COVID-19 at Home (ED) Additional Instructions: he tested positive for COVID today. Symptomatic treatment. He may continue the Claritin Janna Zyrtec for runny nose or may try Benadryl or Chlorpheniramine but both can be sedating. continue the nasal steroid that you are using such as Flonase 2 sprays each nostril daily. For chest congestion with a cough use Mucinex DM or the generic which is guaifenesin with dextromethorphan. Cool-mist humidifier can help congestion at night. Nasal rinse or Neti pot is a good idea for nasal congestion also. Tylenol or ibuprofen as needed for pain or fever. Patient Language: Vincentian Prescriptions: No Action valacyclovir 1 gram tablet Sunosi 150 mg tablet Follow-up/Referrals: Magui,MD Jose [Primary Care Provider] Time of Disposition: 17:14 Quality NIHSS Nursing Documentation ED NIHSS nursing documentation: reviewed/agree
== END 2025-11-21 17:16 | disposition home or self-care (01) ==
PROVIDERS: Emergency Provider Nurse Practitioner Family; PCP Internal Medicine Infectious Disease
DX: U07.1 COVID-19 (principal)
CPT/HCPCS: 87426; 87804; 99212; G0463